=== PATIENT | male | born 1980 | race Caucasian/White ===

== ENCOUNTER 2016-12-30 07:58 | Emergency (ER) | payer BC ==
--- NOTE | ~2016-12-30 | CT98 ---
[facility] A Service of [facility] RADIOLOGY TEXT RESULTS PATIENT: LITO CURTIS LOCATION: [facility] : 76 UNIT #: [id number] AGE: [address]: Elizabeth Keller APRN SEX: M ORDER DR: [id number] [facility] [address] [place], [place] [address] [id number] MR#: [id number] Acc #: [id number] NAME: LITO CURTIS : 1980 SEX: M STUDY DATE/TIME: 12/30/2016 9:21 UNIT: [facility] ROOM: STUDY DESCRIPTION: CT Lumbar Spine Wo Cont Attending Physician: Elizabeth Keller A.P.R.N. Ordering Physician: Ed Doctor [id number] [facility] Primary Care Physician: Primary Care Physician No MEDICAL IMAGING REPORT This report is preliminary unless electronic signature is present EXAM Lumbar spine CT 12/30/2016 INDICATION Low back pain for the last 5 days. No known trauma. Prior history of herniated disc. TECHNIQUE Axial images were obtained through the lumbar spine without contrast. Multiplanar reformats were obtained. No comparison. This CT examination was performed with one or more of the following radiation dose reduction techniques: automatic exposure control, adjustment of mA and/or kV according to patient size, and iterative reconstruction. FINDINGS No fracture or subluxation is identified. At L5-S1, there is a broad based disc osteophyte complex which is mildly eccentric to the right. This is causing moderate to severe central stenosis. There is also moderate bilateral foraminal narrowing. There is bilateral facet arthropathy at this level. At L4-5, there is bilateral facet arthropathy. There is a mild posterior broad based disc bulge. Significant central canal or neural foraminal narrowing is not seen. At L3-4, there is facet arthropathy and there is a very mild posterior broad based bulge. No significant central canal or neural foraminal stenosis. At L2-3, mild facet arthropathy is present. Minimal disc bulge is seen, without central canal or foraminal stenosis. [facility] A Service of [facility] RADIOLOGY TEXT RESULTS PATIENT: LITO CURTIS LOCATION: [facility] : 76 UNIT #: [id number] AGE: [address]: Elizabeth Keller APRN SEX: M ORDER DR: At L1-2, disc is within normal limits. IMPRESSION 1. No fracture or subluxation 2. Broad based disc osteophyte complex at L5-S1. This is causing moderate to severe central canal stenosis as well as at least a moderate degree of bilateral neural foraminal narrowing. There is associated facet arthropathy. 3. Mild multilevel degenerative disc bulging without a significant degree of central canal or neural foraminal narrowing elsewhere in the lumbar spine. 4. Findings could be further assessed with nonemergent MRI if clinically indicated. Dictated by... Julio Meadows Jr., M.D. THIS IS AN ELECTRONICALLY VERIFIED REPORT Julio Meadows Jr., M.D. at 12/30/2016 3:38 PM YESENIA/zach TD: 12/30/2016 14:21 JOB #: [id number] MEDICAL IMAGING REPORT Page 1 of 1 COPY
== END 2016-12-30 10:48 | disposition home or self-care (01) ==
LOC: CED 07:58
DX: M51.16 Intervertebral disc disorders with radiculopathy, lumbar region (principal); F17.210 Nicotine dependence, cigarettes, uncomplicated
CPT/HCPCS: 72131; 96372; 99283; J1885